=== PATIENT | female | born 1935 | race Caucasian/White ===

== ENCOUNTER → 2023-04-22 23:59 | Outpatient (BNV) | payer MEDICARE, SELFPAY ==
--- NOTE | 2023-05-07 21:21 | A.OFFVIS_ITS ---
Intake Intake Visit Reasons: Remote Device Check- Biotronik Allergies No Known Allergies Allergy (Mild, Verified 03/03/23 13:40) N/A [facility] Medical History Cognitive decline Dementia Glaucoma History of non-ST elevation myocardial infarction (NSTEMI) (~09/2021) Hyperlipidemia Hypertension Osteopenia (~2005) Pacemaker (~09/2021) Tubular adenoma of colon (~2007) Surgical History History of appendectomy History of colectomy History of colonoscopy History of pacemaker (~09/2021) Family History Other No family history of coronary artery disease Social History Household Members: None Household Members Other:: [address] Housing: [facility] Do you presently have visiting nurse or other home services: No Alcohol intake: never Patient Tobacco Use Status: Never used Tobacco e-Cigarette/Vaping Use: Never Used Second Hand Smoke Exposure: No service: No Current occupational status: retired Office Procedures Cardiac Device Check Cardiac Device Check Details: PPM Good battery life No new alerts. [id number] Cardiac Device Interrogation, pacemaker Procedure code (CPT) selection complete Assessment & Plan Assessment & Plan (1) PAF (paroxysmal atrial fibrillation): Code(s): I48.0 - Paroxysmal atrial fibrillation Coding Level of Care Code Procedure Only Diagnoses PAF (paroxysmal atrial fibrillation) I48.0 CPT Codes Cardiac Device Check - Cardiac Device 12: [id number] Cardiac Device Interrogation, pacemaker ([id number])
== END ==
PROVIDERS: PCP Internal Medicine; Visit Provider Internal Medicine Cardiovascular Disease
DX: I48.0 Paroxysmal atrial fibrillation (principal); Z95.0 Presence of cardiac pacemaker
CPT/HCPCS: 93294

== ENCOUNTER 2023-06-10 10:01 | Outpatient (AMB) | payer MEDICARE, SELFPAY ==
[2023-06-10 10:02] VITALS: BP 138/72; PULSE 70; O2SAT 96; BMI 23.2
--- NOTE | 2023-06-10 10:02 | A.OFFPC_ITS ---
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: No Translator/Interpreter: Present Accompanied by: Son Allergies No Known Allergies Allergy (Mild, Verified 06/10/23 10:03) N/A Medication List - Last Reconciled 06/10/23 by Slava Morgan MD apixaban (Eliquis) 2.5 mg PO BID atorvastatin 20 mg PO DAILY metoprolol tartrate 12.5 mg (1/2 x 25 mg) PO BID omeprazole 20 mg PO DAILY@0630 soft lens rinse,store solution As directed Tobacco use date assessed: 08/26/22 Fall risk assessment: No Falls in past year Last assessed Fall Risk: 06/10/23 Dental Screening Dental Screen Date: 06/10/23 Did you have a dental visit in the last 12 months?: No Did you have a dental problem in the last 6 months where you did not have access to dental care?: No Was dental information given to patient?: Patient has dentist HPI Physical exam HPI Details Kat and HTN; PPM in place; doing well [facility] Medical History Pacemaker (~09/2021) History of non-ST elevation myocardial infarction (NSTEMI) (~09/2021) Osteopenia (~2005) Tubular adenoma of colon (~2007) Glaucoma Hyperlipidemia Dementia Hypertension Cognitive decline Surgical History History of pacemaker (~09/2021) History of appendectomy History of colonoscopy History of colectomy Family History Other No family history of coronary artery disease Social History Household Members: None Household Members Other:: [address] Housing: [place] Do you presently have visiting nurse or other home services: No Alcohol intake: never Patient Tobacco Use Status: Never used Tobacco e-Cigarette/Vaping Use: Never Used Second Hand Smoke Exposure: No service: No Current occupational status: retired Cognitive needs: No Hearing needs: No Vision needs: No Questionnaire PHQ-9 Over the last 2 weeks, how often have you been bothered by any of the following problems? 1. Little interest or pleasure in doing things: not at all 2. Feeling down, depressed, or hopeless: not at all 3. Trouble falling or staying asleep, or sleeping too much: not at all 4. Feeling tired or having little energy: not at all 5. Poor appetite or overeating: not at all 6. Feeling bad about yourself - or that you are a failure or have let yourself or your family down: not at all 7. Trouble concentrating on things, such as reading the newspaper or watching television: not at all 8. Moving or speaking so slowly that other people could have noticed. Or the opposite - being so fidgety or restless that you have been moving around a lot more than usual: not at all 9. Thoughts that you would be better off or of hurting yourself in some way: not at all Total score: 0 Depression Screening Interpretation: Negative Depression Screening Done: Yes 05385 - PHQ-9 Billing: Yes Source: Developed by Drs. Lonny Dobbins, Akua Vaz, Alfred Moya and colleagues, with an educational rosario from [email or web address]. Thrive Questionnaire Date Thrive assessed: 08/26/22 AUDIT C Alcohol Use Questionnaire (AUDIT-C) 1. How often do you have a drink containing alcohol?: Never 3. How often do you have six or more drinks on one occasion?: Never Total Score: 0 Score Reviewed/Action Taken: Yes AMADOU-7 AMB Questionnaire AMADOU-7 Date AMADOU - 7 assessed: 08/26/22 Source: Developed by Drs. Lonny Dobbins, Alfred Pimentel and colleagues, with an educational rosario from [email or web address]. Review of Systems Const Denies chills, Denies fatigue, Denies headache(s) and Denies weight loss Eyes Denies change in vision, Denies diplopia and Denies eye pain ENT Denies vertigo, Denies dizziness, Denies headache(s) and Denies nasal discharge Card Denies chest pain, Denies rapid heart rate and Denies dyspnea on exertion Resp Denies chest congestion, Denies cough, Denies pain with cough and Denies dyspnea on exertion GI Denies abdominal pain, Denies hematochezia and Denies change in bowel habits Musc Denies myalgias, Denies arthralgias and Denies joint swelling Skin/Breast Denies lesions and Denies unusual bruising Neuro Denies vertigo, Denies dizziness, Denies headache(s) and Denies focal weakness Endo Denies fatigue Physical exam (Primary Care) Vital Signs: Last Vital Signs Pulse 70 06/10/23 10:02 BP 138/72 06/10/23 10:02 Pulse Ox 96 06/10/23 10:02 Oxygen Delivery Method Room Air 06/10/23 10:02 BMI result Body Mass Index 23.2 Tobacco/Smoking Status: Tobacco use Status Tobacco use date assessed 08/26/22 06/10/23 10:08 Patient Tobacco Use Status Never used Tobacco 06/10/23 10:08 e-Cigarette/Vaping Use Never Used 06/10/23 10:08 PHQ-9: PHQ-9 Score PHQ-9: Total score 0 06/10/23 10:08 Depression Screening Interpretation: Negative Thrive Assessment: Date of Thrive Assessment Date Thrive assessed 08/26/22 06/10/23 10:08 Advance Care Planning discussion: On file, no changes Forms completed: Health Care Proxy Const General: cooperative, healthy appearing and no acute distress Orientation/consciousness: oriented to person, oriented to place and oriented to time [facility] Head: Yes normal to inspection, Yes normocephalic and Yes atraumatic Mouth: Normal oral and palatal mucosa present and tongue normal Throat: Yes posterior oropharynx normal and Yes uvula midline Eyes General: appearance normal, both eyes and all related structures Neck Neck: Yes normal visual inspection, Yes full ROM and Yes no lymphadenopathy Thyroid: Thyroid normal Carotids: normal carotid upstroke Chest Chest palpation & inspection: normal inspection of the chest Resp Effort & Inspection: normal respiratory effort and able to speak in complete sentences Auscultation: clear to auscultation bilaterally Cardio Jugular venous distension: no JVD Palpation: normal PMI Rate: regular rate Rhythm: regular rhythm Heart sounds: S1 normal heart sound present and S2 normal heart sound present GI Inspection: Yes normal to inspection Palpation (GI): Soft to palpation and No hepatosplenomegaly present Auscultation: normal bowel sounds General: Yes no CVA tenderness Back/Spine/Pelvis Back: no CVA tenderness Skin General skin exam: no rashes or lesions noted Neuro General: oriented to person, oriented to place and oriented to time Extrem General: Yes normal to inspection and Yes full ROM Assessment and Plan Assessment & Plan (1) Physical exam: Code(s): Z00.00 - Encounter for general adult medical examination without abnormal findings Plan: stable; do labs (2) Hypertension: Code(s): I10 - Essential (primary) hypertension Plan: stable; same rx (3) PAF (paroxysmal atrial fibrillation): Code(s): I48.0 - Paroxysmal atrial fibrillation Plan: stable; same rx Orders: Orders Thyroid Stimulating Hormone Today E03.9 - Hypothyroidism, unspecified Complete Blood Count Auto Diff Today D64.9 - Anemia, unspecified Comprehensive [place]. Panel Fast Today N28.9 - Disorder of kidney and ureter, unspecified Coding Level of Care Code Est Pt Prev Care >65y(47111) Diagnoses Physical exam Z00.00 Hypertension I10 PAF (paroxysmal atrial fibrillation) I48.0 Additional Codes Vital Signs *Quality* - Advance Care Planning discussion: On file, no changes ([id number])
== END 2023-06-10 11:27 | disposition home or self-care (01) ==
PROVIDERS: PCP Internal Medicine; Visit Provider Internal Medicine
DX: Z00.00 Encounter for general adult medical examination without abnormal findings (principal); I10 Essential (primary) hypertension; I48.0 Paroxysmal atrial fibrillation
CPT/HCPCS: 1123F; 99397

== ENCOUNTER → 2023-10-21 23:59 | Outpatient (BNV) | payer MEDICARE, SELFPAY ==
--- NOTE | 2023-11-16 20:53 | MHC.OFFVIS ---
Intake Intake Visit Reasons: Remote Device Check- Biotronik Allergies No Known Allergies Allergy (Mild, Verified 06/10/23 10:03) N/A [facility] Medical History Pacemaker (~09/2021) History of non-ST elevation myocardial infarction (NSTEMI) (~09/2021) Osteopenia (~2005) Tubular adenoma of colon (~2007) Glaucoma Hyperlipidemia Dementia Hypertension Cognitive decline Surgical History History of pacemaker (~09/2021) History of appendectomy History of colonoscopy History of colectomy Family History Other No family history of coronary artery disease Social History Household Members: None Household Members Other:: [address] Housing: Alf Do you presently have visiting nurse or other home services: No Alcohol intake: never Comment: Son at bedside Patient Tobacco Use Status: Never used Tobacco e-Cigarette/Vaping Use: Never Used Second Hand Smoke Exposure: No service: No Current occupational status: retired Cognitive needs: No Hearing needs: No Vision needs: No Office Procedures Cardiac Device Check Cardiac Device Check Details: PPM Good battery life. No new alerts. [id number] Cardiac Device Interrogation, pacemaker Procedure code (CPT) selection complete Assessment & Plan Assessment & Plan (1) Pacemaker: Onset Date: ~09/2021 Comment: (Biotronik DCPP - placed 09/24/21) Code(s): Z95.0 - Presence of cardiac pacemaker Plan: Coding Level of Care Code Procedure Only Diagnoses Pacemaker Z95.0 CPT Codes Cardiac Device Check - Cardiac Device 12: [id number] Cardiac Device Interrogation, pacemaker ([id number])
== END ==
PROVIDERS: PCP Internal Medicine; Visit Provider Internal Medicine Cardiovascular Disease
DX: Z45.018 Encounter for adjustment and management of other part of cardiac pacemaker (principal)
CPT/HCPCS: 93294

== ENCOUNTER → 2024-01-20 23:59 | Outpatient (BNV) | payer MEDICARE, SELFPAY ==
--- NOTE | 2024-02-08 19:55 | MHC.OFFVIS ---
Intake Visit Reasons: Remote device check- Biotronik Allergies No Known Allergies Allergy (Mild, Verified 06/10/23 10:03) N/A [facility] Medical History Pacemaker (~09/2021) History of non-ST elevation myocardial infarction (NSTEMI) (~09/2021) Osteopenia (~2005) Tubular adenoma of colon (~2007) Glaucoma Hyperlipidemia Dementia Hypertension Cognitive decline Surgical History History of pacemaker (~09/2021) History of appendectomy History of colonoscopy History of colectomy Family History Other No family history of coronary artery disease Social History Household Members: None Household Members Other:: [address] Housing: Intermediate Do you presently have visiting nurse or other home services: No Alcohol intake: never Comment: Son at bedside Patient Tobacco Use Status: Never used Tobacco e-Cigarette/Vaping Use: Never Used Second Hand Smoke Exposure: No service: No Current occupational status: retired Cognitive needs: No Hearing needs: No Vision needs: No Office Procedures Cardiac Device Check Cardiac Device Check Details: PPM Good battery No new alerts AP 60%. [id number] Cardiac Device Check, pacemaker dual lead Procedure code (CPT) selection complete Assessment & Plan Assessment & Plan (1) Pacemaker: Onset Date: ~09/2021 Comment: (Biotronik DCPP - placed 09/24/21) Code(s): Z95.0 - Presence of cardiac pacemaker Category: Medical Plan: Coding Level of Care Code Procedure Only Diagnoses Pacemaker Z95.0 CPT Codes Cardiac Device Check - Cardiac Device 2: [id number] Cardiac Device Check, pacemaker dual lead ([id number])
== END ==
PROVIDERS: PCP Internal Medicine; Visit Provider Internal Medicine Cardiovascular Disease
DX: Z45.018 Encounter for adjustment and management of other part of cardiac pacemaker (principal)
CPT/HCPCS: 93294

== ENCOUNTER 2024-03-01 13:41 | Outpatient (AMB) | payer MEDICARE, SELFPAY ==
[2024-03-01 14:18] VITALS: BP 140/70; PULSE 83; BMI 23.8
--- NOTE | 2024-03-01 14:18 | MHC.OFFVIS ---
Vital Signs 03/01/24 14:18 Height 5 ft 4 in Weight 138 lb 14.259 oz BMI 23.8 BP 140/70 H Blood Pressure Location Lt brachial Position Sitting Pulse 83 Pulse Source Monitor Intake Visit Reasons: 1 YEAR FUP + DEVICE CHECK Intake Note: 1 yr f/up with pacer check, pt is feeling fine. 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 She was seen in the hospital for vasovagal syncope and long pauses. She had fallen multiple times including a fall on her face. After discussion with the son we decided to put pacemaker. We put a Biotronik pacemaker which has CLS setting which has some evidence in vasovagal syncope. On follow-up she has been doing well. She has not had any further syncope. Occasionally she gets dizzy when she changes her posture. She was advised to drink more water. Device interrogated in the office which is showing a battery life of approximately 7 years. Essentially normal device interrogation. 03/01/2024: She is here for follow-up. She is accompanied by her son. She is living in assisted living. Denying any chest pain or shortness of breath. No syncopal episodes since the pacemaker was implanted. No complaints on follow-up. [facility] Medical History Pacemaker (~09/2021) History of non-ST elevation myocardial infarction (NSTEMI) (~09/2021) Osteopenia (~2005) Tubular adenoma of colon (~2007) Glaucoma Hyperlipidemia Dementia Hypertension Cognitive decline Surgical History History of pacemaker (~09/2021) History of appendectomy History of colonoscopy History of colectomy Family History Other No family history of coronary artery disease Social History Household Members: None Household Members Other:: [address] Housing: Longterm Do you presently have visiting nurse or other home services: No Alcohol intake: never Comment: Son at bedside Patient Tobacco Use Status: Never used Tobacco e-Cigarette/Vaping Use: Never Used Second Hand Smoke Exposure: No service: No Current occupational status: retired Cognitive needs: No Hearing needs: No Vision needs: No Review of Systems Const Denies chills, Denies fatigue, Denies fever(s), Denies frequent falls, Denies weakness, Denies weight gain and Denies weight loss ENT Denies dizziness Card Denies chest pain, Denies leg edema, Denies lightheadedness, Denies palpitations, Denies dyspnea and Denies dyspnea on exertion Resp Denies cough, Denies dyspnea and Denies dyspnea on exertion GI Denies hematochezia Musc Denies abnormal gait, Denies muscle weakness, Denies numbness, Denies radiating pain into limb and Denies tingling Neuro Denies abnormal gait, Denies dizziness, Denies frequent falls, Denies numbness, Denies tingling and Denies weakness Endo Denies fatigue and Denies palpitations Physical Exam Vital Signs: Last Vital Signs Pulse 83 03/01/24 14:18 BP 140/70 H 03/01/24 14:18 BMI result Body Mass Index 23.8 GENERAL APPEARANCE: in no acute distress, pleasant. NECK: no carotid bruit, no jugular venous distention. SKIN: no suspicious lesions, warm and dry. HEART: no murmurs, regular rate and rhythm. LUNGS: clear to auscultation bilaterally. ABDOMEN: soft, nontender. EXTREMITIES: no edema. PERIPHERAL PULSES: equal. Office Procedures EKG Details: Normal sinus rhythm 83 beats per minute, nonspecific ST-T changes, QTC 437 milliseconds. [id number], Complete Assessment & Plan Assessment & Plan (1) Bradycardia: Onset Date: ~09/2021 Comment: (Bradycardia/sinus arrest - s/p [facility] 09/2021) Code(s): R00.1 - Bradycardia, unspecified Category: Medical (2) Pacemaker: Onset Date: ~09/2021 Comment: (Biotronik DCPP - placed 09/24/21) Code(s): Z95.0 - Presence of cardiac pacemaker Category: Medical (3) Hypertension: Code(s): I10 - Essential (primary) hypertension Category: Medical (4) PAF (paroxysmal atrial fibrillation): Code(s): I48.0 - Paroxysmal atrial fibrillation Category: Medical Plan Pleasant 88 year female who is here for follow-up. She has background history of syncope which was initially thought to be vasovagal but there was significant bradycardia and after discussion she had permanent pacemaker placement. Since then she has been stable and has not had any further syncopal episodes or falls. Blood pressure is mildly elevated. No changes in blood pressure medications. Pacemaker interrogation did not raise any concerns. Overall she has been doing well. She is on apixaban for anticoagulation for atrial fibrillation. Follow-up in 1 year. Thank you for allowing me to participate in the care of your patient. Please feel free to contact me if you have any questions. Medications: Refilled apixaban (Eliquis) 2.5 mg PO BID 30 days 120 tabs 4RF Coding Level of Care Code Est Pt Level 4 (34566) Diagnoses Bradycardia R00.1 Pacemaker Z95.0 Hypertension I10 PAF (paroxysmal atrial fibrillation) I48.0 CPT Codes EKG - CPT: 64159-[id number], Complete ([id number])
== END 2024-03-01 14:47 | disposition home or self-care (01) ==
PROVIDERS: PCP Internal Medicine; Visit Provider Internal Medicine Cardiovascular Disease
DX: R00.1 Bradycardia, unspecified (principal); Z95.0 Presence of cardiac pacemaker; I10 Essential (primary) hypertension; I48.0 Paroxysmal atrial fibrillation
CPT/HCPCS: 93010; 99214

== ENCOUNTER → 2024-03-01 13:41 | Outpatient (BNVA) | payer SELFPAY | PROVIDERS: PCP Internal Medicine; Visit Provider Internal Medicine Cardiovascular Disease | DX: R00.1 Bradycardia, unspecified (principal); I10 Essential (primary) hypertension; I48.0 Paroxysmal atrial fibrillation; Z79.01 Long term (current) use of anticoagulants; Z95.0 Presence of cardiac pacemaker | CPT/HCPCS: 93005; 99212 ==